=== PATIENT | male | born 1980 | race Hispanic/Latino ===

== ENCOUNTER 2018-08-03 15:13 | Emergency (ER) | payer BC ==
[2018-08-03] MEDS ORDERED: Adacel (T-DAP) 0.5 ML SYRINGE ONE (15:56)
--- NOTE | 2018-08-03 16:08 | RAD ---
Left foot 3 views HISTORY: Left foot pain. FINDINGS: Lisfranc joint alignment is anatomic. Plantar arch is maintained. Joint spaces are preserve d. Prominent soft tissue swelling about the date toe with ill-defined loss of mineralization involving t he distal phalanx. Subtle expansion and fragmentation. No soft tissue gas is apparent. Coronally oriented fracture through the plantar portion of the phalanx with minimally displaced intra-articular component. IMPRESSION: Comminuted crush fracture of the distal phalanx with mildly displaced intra-articular com ponent.
[2018-08-03] MEDS ORDERED: Bupivacaine 0.5% 10 ML VIAL ONE (16:26)
== END 2018-08-03 17:21 | disposition home or self-care (01) ==
LOC: ERS 15:13
DX: S92.422A Displaced fracture of distal phalanx of left great toe, initial encounter for closed fracture (principal); S91.202A Unspecified open wound of left great toe with damage to nail, initial encounter; W22.8XXA Striking against or struck by other objects, initial encounter
CPT/HCPCS: 28490; 90471; 90715; J3490

== ENCOUNTER 2022-12-01 09:37 | Outpatient (CLI) | payer OTHER | END 2022-12-01 09:38 | disposition home or self-care (01) | LOC: RAD 09:37 | PROVIDERS: ATTEND Nurse Practitioner Family | DX: M25.551 Pain in right hip (principal) ==